=== PATIENT | female | born 1995 | race African-American/Black ===

== ENCOUNTER 2019-01-02 15:16 | Emergency (ER) | payer OTHER ==
[~2019-01-02] VITALS: Ht 157.5 cm; Wt 70.0 kg
[2019-01-02] MEDS ORDERED: ASPI-496 PO (15:36)
--- NOTE | 2019-01-02 15:36 | NUR ---
TASK RN: BIB [facility] W/ CO KRAUSE/DIZZINESS X TODAY. HX OF HELP SYNDROME, +, 13WEEKS. . DENIES ABD PAIN/VAGINAL DC OR BLEEDING/CP/SOB. GROSS NEURO INTACT. FACE SYMMETRICAL, SPEECH CLEAR, +STRENGTH X4. PT A&OX4 PT AMBULATED STEADILY TO BATHROOM WITH RN TO PROVIDE UA. BP/SPO2/ECG MONITORING IN PLACE. NSR ON MONITOR. REPORT TO PRIMARY RN, DOREEN
[2019-01-02 16:17] LABS: MICROSCOPIC NOT IND
[2019-01-02 16:22] LABS: CULTURE INDICATED? NO
[2019-01-02 16:40] LABS: BASOPHILS # (AUTO) 0.02 x10^3/uL (0-0.1); BASOPHILS % (AUTO) 0 % (0-1); EOSINOPHILS # (AUTO) 0.04 x10^3/uL (0-0.4); EOSINOPHILS % (AUTO) 1 % (1-7); LYMPHOCYTES # (AUTO) 2.06 x10^3/uL (1-3.4); LYMPHOCYTES % (AUTO) 25 % (22-44); MD NO; MEAN CORPUSCULAR HGB CONC 32.8 g/dL (32.4-35.8); MEAN CORPUSCULAR VOLUME 94.5 fL (80-100); MEAN PLATELET VOLUME 10.4 fL (7.4-10.4); MONOCYTES # (AUTO) 0.39 x10^3/uL (0.2-0.8); MONOCYTES % (AUTO) 5 % (2-9); NEUTROPHILS # (AUTO) 5.62 x10^3/uL (1.8-6.8); NEUTROPHILS % (AUTO) 69 % (42-75); PLATELET COUNT 141 x10^3/uL (130-400); RED CELL DISTRIBUTION WIDTH 13.2 % (9.6-15.2)
[2019-01-02 16:46] LABS: ALANINE AMINOTRANSFERASE 13 U/L (12-78); ALBUMIN 3.2 g/dL (3.4-5.0); ANION GAP 8 mmol/L (5-15); CALCIUM 8.7 mg/dL (8.5-10.1); CHLORIDE 108 mmol/L (98-107); CREATININE 0.52 mg/dL (0.55-1.02)
[2019-01-02 16:49] LABS: ALKALINE PHOSPHATASE 51 U/L (45-117); BILIRUBIN,TOTAL 0.5 mg/dL (0.2-1.0); TOTAL PROTEIN 6.8 g/dL (6.4-8.2)
--- NOTE | 2019-01-02 17:24 | NUR ---
PATIETN WALKED TO BATHROOM. GOOD ON FEET. ABDOMINAL CRAMPING.
[2019-01-02 17:30] VITALS: BP 118/78
--- NOTE | 2019-01-02 17:32 | NUR ---
DISHCARGE TEACHING REVIEWED, SHOWS UNDERSTANDING.
== END 2019-01-02 18:06 | disposition other institution (70) ==
LOC: ED 18:00
DX: O26.891 Other specified pregnancy related conditions, first trimester (principal); R42 Dizziness and giddiness; Z3A.13 13 weeks gestation of pregnancy
CPT/HCPCS: 36415; 80053; 81003; 83690; 85025; 93005; 99284